=== PATIENT | male | born 2000 | race Caucasian/White ===

== ENCOUNTER 2018-12-17 11:15 | Emergency (ER) | payer MEDICAID ==
[~2018-12-17] VITALS: Ht 172.7 cm; Wt 56.4 kg
[2018-12-17 11:20] VITALS: BP 121/87
--- NOTE | 2018-12-17 15:00 | NUR ---
pt ambulated to er bed 11
--- NOTE | 2018-12-17 15:15 | NUR ---
17 YO M BIB SELF W/ C/O SORE THROAT X 5 DAYS. REPORTS [facility]. DENIES N/V/D. TYLENOL TAKEN AT 0930 THIS MORNING. AIRWAY PATENT. RR EVEN AND UNLABORED, LUNGS CLEAR. NAD. AWAITING ER MD CARDENAS.
[2018-12-17] MEDS ORDERED: KETOROLAC 30 MG/ML VIAL IM ONE (15:40)
[2018-12-17] MEDS ORDERED: DEXAMETHASONE 10 MG/ML VIAL PO ONE (15:40)
[2018-12-17] MEDS ORDERED: LIDOCAINE VISCOUS 2% 20 ML UDC PO ONE (15:40)
[2018-12-17 16:45] VITALS: BP 125/76
--- NOTE | 2018-12-17 16:46 | NUR ---
Patient discharged with v/s stable. Written and verbal after care instructions given and explained. Patient alert, oriented and verbalized understanding of instructions. Ambulatory with steady gait. All questions addressed prior to discharge. ID band removed. Patient advised to follow up with PMD. Rx of naprosyn, peridex, and tylenol given. Patient educated on indication of medication including possible reaction and side effects. Opportunity to ask questions provided and answered.
== END 2018-12-17 16:46 | disposition home or self-care (01) ==
LOC: MED 11:15
DX: J02.8 Acute pharyngitis due to other specified organisms (principal); B97.89 Other viral agents as the cause of diseases classified elsewhere
CPT/HCPCS: 87081; 96372; 99283; J1100; J1885

== ENCOUNTER 2019-02-27 18:31 | Emergency (ER) | payer MEDICAID ==
[~2019-02-27] VITALS: Ht 172.7 cm; Wt 60.0 kg
[2019-02-27 18:35] VITALS: BP 135/78
--- NOTE | 2019-02-27 18:40 | NUR ---
PT AMB TO BED 9
--- NOTE | 2019-02-27 19:15 | NUR ---
REPORT TO GERRY CORNELIUS
[2019-02-27] MEDS ORDERED: PANTOPRAZOLE 40 MG TABEC PO ONE (19:20)
--- NOTE | 2019-02-27 19:29 | NUR ---
REPORT FROM ADRYAN GARRETT
[2019-02-27] MEDS ORDERED: KETOROLAC 30 MG/ML VIAL IM ONE (20:00)
[2019-02-27 20:19] VITALS: BP 111/73
--- NOTE | 2019-02-27 20:19 | NUR ---
Patient discharged with v/s stable. Written and verbal after care instructions given and explained. Patient alert, oriented and verbalized understanding of instructions. Ambulatory with steady gait. All questions addressed prior to discharge. ID band removed. Patient advised to follow up with PMD. Rx of IBUPROFEN, RANITIDINE given. Patient educated on indication of medication including possible reaction and side effects. Opportunity to ask questions provided and answered.
== END 2019-02-27 20:19 | disposition home or self-care (01) ==
LOC: MED 18:31
DX: K21.9 Gastro-esophageal reflux disease without esophagitis (principal); M94.0 Chondrocostal junction syndrome [Tietze]
CPT/HCPCS: 71045; 93005; 96372; 99283; J1885